=== PATIENT | female | born 1960 | race Hispanic/Latino ===

== ENCOUNTER 2020-04-12 10:44 | Outpatient (CLI) | payer BC, SELFPAY ==
[2020-04-12 11:29] LABS: Alanine Aminotransferase 39 U/L (4-35); Albumin Level 4.5 g/dL (3.5-5.1); Alkaline Phosphatase 93 U/L (38-126); Anion Gap 10 mmol/L (8-16); Aspartate Amino Transferase 39 U/L (14-36); Bilirubin,Total 0.4 mg/dL (0.2-1.3); Blood Urea Nitrogen 16 mg/dL (7-17); Calcium 9.1 mg/dL (8.4-10.2); Carbon Dioxide 28 mmol/L (22-30); Chloride 105 mmol/L (98-107); Cholesterol 162 mg/dL (0-200); Estimated Glomerular Filt Rate > 60; Glucose 112 mg/dL (65-105); HDL Direct 37 mg/dL; Potassium 3.8 mmol/L (3.4-5.0); Sodium 143 mmol/L (137-145); Triglycerides 152 mg/dL (<150)
[2020-04-12 11:40] LABS: LDL Cholesterol Direct 91 mg/dL
== END 2020-04-12 10:45 | disposition home or self-care (01) ==
LOC: ANHLAB 10:45
PROVIDERS: PCP Internal Medicine; Visit Provider Internal Medicine
DX: R00.2 Palpitations (principal); E78.5 Hyperlipidemia, unspecified; Z79.899 Other long term (current) drug therapy
CPT/HCPCS: 36415; 80053; 80061; 84443

== ENCOUNTER 2020-04-19 09:37 | Outpatient (CLI) | payer BC, SELFPAY ==
--- NOTE | 2020-04-24 12:52 | WPDHOLTEREM ---
Holter/Event Monitor Holter/Event Monitor Date of procedure: 04/19/20 Procedure Type: 48 hour holter monitor Indications: Palpitations Conclusion: 1. 48 hour holter monitor on 04/19/20. 2. Predominant rhythm is sinus rhythm. HR range 57-125 bpm; average HR 79 bpm. 3. There are 19 premature supraventricular complexes and 7 supraventricular couplets. There are 3 short runs of atrial tachycardia, fastest at 132 bpm and longest lasting 6 beats. 4. There are 1,058 premature ventricular complexes. No ventricular tachycardia. 5. No sinoatrial or atrioventricular blocks. No significant pauses greater than 2 seconds. 6. Patient reports symptoms of chest pain, palpitations which demonstrate sinus rhythm, HR range 67-92 bpm.
== END 2020-04-19 09:38 | disposition home or self-care (01) ==
LOC: ANHCARD 09:38
PROVIDERS: PCP Internal Medicine; Visit Provider Internal Medicine
DX: R00.2 Palpitations (principal)
CPT/HCPCS: 93225; 93226

== ENCOUNTER 2020-06-19 09:36 | Outpatient (CLI) | payer BC, SELFPAY ==
--- NOTE | ~2020-06-19 | XR_ITS ---
EXAMINATION: XR chest 2V EXAM DATE: 06/19/2020 10:03 INDICATION: 2 month SOB S/P Covid-19 infection. TECHNIQUE: Frontal and lateral projections of the chest obtained and reviewed. Comparison is made to prior examination from 05/05/2007. FINDINGS: The lungs are clear. There are no pleural effusions. The cardiomediastinal silhouette is within normal limits. Right infrahilar granuloma. There is no pneumothorax suspected. There are mild bony degenerative changes. IMPRESSION: No acute cardiopulmonary findings. Reviewed, dictated and finalized at location B. CLEANER
== END 2020-06-19 09:37 | disposition home or self-care (01) ==
LOC: ANHIMG 09:40
PROVIDERS: PCP Internal Medicine; Visit Provider Nurse Practitioner
DX: R06.02 Shortness of breath (principal)
CPT/HCPCS: 71046

== ENCOUNTER 2020-07-16 08:20 | Outpatient (CLI) | payer MEDICAID, SELFPAY ==
--- NOTE | ~2020-07-16 | MM_ITS ---
EXAMINATION: MM screening paola BI w mani HISTORY: Screening mammogram TECHNIQUE: Craniocaudal and mediolateral oblique 3-D tomosynthesis images were obtained and synthetic 2-D images were generated. CAD analysis was submitted and interpreted. COMPARISON: 01/06/2019, 02/26/2016 bilateral digital screening mammogram examinations BREAST PARENCHYMAL COMPOSITION: The breasts are almost entirely fatty. FINDINGS: There is no evidence of suspicious mass, calcification, or architectural distortion to sugg est malignancy in either breast. There has been no suspicious interval change. IMPRESSION: 1. No mammographic evidence of malignancy. 2. Recommend routine screening mammography in one year. BI-RADS Category 1: Negative Reviewed, dictated and finalized at location A. L EQUIPMENT MECHANIC
== END 2020-07-16 08:21 | disposition home or self-care (01) ==
LOC: ANHIMG 08:24
PROVIDERS: PCP Internal Medicine; Visit Provider Nurse Practitioner
DX: Z12.31 Encounter for screening mammogram for malignant neoplasm of breast (principal)
CPT/HCPCS: 77063; 77067

== ENCOUNTER 2020-11-19 10:47 | Outpatient (CLI) | payer OTHER, SELFPAY ==
[2020-11-19 12:08] LABS: Alanine Aminotransferase 40 U/L (4-35); Albumin Level 4.4 g/dL (3.5-5.1); Alkaline Phosphatase 83 U/L (38-126); Anion Gap 5 mmol/L (8-16); Aspartate Amino Transferase 41 U/L (14-36); Bilirubin,Total 0.3 mg/dL (0.2-1.3); Blood Urea Nitrogen 9 mg/dL (7-17); Calcium 9.3 mg/dL (8.4-10.2); Carbon Dioxide 30 mmol/L (22-30); Chloride 105 mmol/L (98-107); Cholesterol 162 mg/dL (0-200); Estimated Glomerular Filt Rate > 60; Glucose 115 mg/dL (65-105); HDL Direct 41 mg/dL; Potassium 4.1 mmol/L (3.4-5.0); Sodium 140 mmol/L (137-145); Triglycerides 157 mg/dL (<150)
[2020-11-19 12:18] LABS: LDL Cholesterol Direct 84 mg/dL
[2020-11-19 12:42] LABS: Vitamin D 25 Hydroxy 33.9 ng/mL
== END 2020-11-19 10:48 | disposition home or self-care (01) ==
LOC: ANHLAB 10:50
PROVIDERS: PCP Internal Medicine; Visit Provider Nurse Practitioner
DX: E78.5 Hyperlipidemia, unspecified (principal); F32.9 Major depressive disorder, single episode, unspecified; Z13.21 Encounter for screening for nutritional disorder
CPT/HCPCS: 36415; 80053; 80061; 82306; 84443

== ENCOUNTER 2022-01-23 18:11 | Emergency (ER) | payer OTHER, SELFPAY ==
[2022-01-23 18:19] VITALS: BP 141/67; PULSE 71; RESP 16; TEMP 36.8; O2SAT 98
[2022-01-23 18:20] VITALS: BP 141/67; PULSE 71; RESP 16; TEMP 36.8; O2SAT 98
--- NOTE | 2022-01-23 18:33 | ED.GENADULT ---
HPI - General Adult General Chief complaint: Dental/Oral Stated complaint: rt side facial pain Time Seen by Provider: 01/23/22 18:24 Source: patient Mode of arrival: ambulatory Limitations: no limitations History of Present Illness HPI narrative: Patient presents today complaining of right-sided facial pain and swelling. She had an endoscopy 3 days ago and states the day after her scope she developed this pain to her right upper lip that extends to her right cheek up to her right eye, and down her right neck. She currently rates her pain 5/10 and has been taking ibuprofen and using VapoRub on her face without much relief. Related Data Home Medications Medication Instructions Recorded Confirmed atorvastatin 10 mg tablet 10 mg PO DAILY 04/12/20 01/23/22 cetirizine 10 mg tablet 10 mg PO DAILY 04/12/20 01/23/22 milk thistle 175 mg tablet 175 mg PO DAILY 04/12/20 01/23/22 multivitamin-ferrous 1 tablet PO DAILY 04/12/20 01/23/22 fumarate-folic acid 18 mg-400 mcg tablet ([facility]) Allergies Allergy/AdvReac Type Severity Reaction Status Date / Time ciprofloxacin Allergy Severe TONGUE Verified 01/23/22 18:16 SWELLING, RASH Review of Systems Review of Systems: CONSTITUTIONAL: Denies body aches, fever, chills, or sweats. EYES: Denies visual changes, redness, or discharge. ENT: Denies rhinorrhea, congestion, sore throat, or otalgia. CARDIOVASCULAR: Denies chest pain, palpitations, or edema. RESPIRATORY: Denies cough or dyspnea. GASTROINTESTINAL: Denies abdominal pain, nausea, vomiting, or diarrhea. GENITOURINARY: Denies dysuria or hematuria. SKIN: Denies rash, itching, or wounds.+ Right-sided facial pain and swelling MUSCULOSKELETAL: Denies back pain, joint pain, or myalgia. NEUROLOGIC: Denies headache, numbness, tingling, or weakness. PSYCH: Denies depression or anxiety. [facility] Social History Social History Smoking status: Never smoker Second hand tobacco smoke exposure: Yes Alcohol intake: former Substance use: never Substance use type: does not use Comments At time of signature, I have reviewed and agree with nursing past medical, surgical, social and family history unless otherwise noted. Please see nursing chart for further information. There is no relevant family history pertinent to the presenting complaint Exam Narrative: GENERAL: Well-appearing, well-nourished, and in no acute distress. HEAD: Normocephalic, atraumatic. EYES: EOMI. No redness or drainage. Conjunctivae normal. ENT: Mucous membranes pink and moist. Throat normal. Uvula midline. Firm, indurated, erythematous right lateral upper lip that is tender to palpation. This tenderness extends posteriorly inside and outside the cheek, upward just under the right eye. Patient also has some tenderness back towards the preauricular area and down towards the tonsillar lymph node area. This area of the cheek is scantly erythematous. No induration aside from the lip. The inside mucosa of the cheek seems to appear normal. NECK: Normal AROM. Supple. No lymphadenopathy. CHEST: No respiratory distress. EXTREMITIES: Normal range of motion. No edema. SKIN: Warm, dry, no rash. Capillary refill normal. Normal skin turgor. NEURO: No focal deficits. Alert and oriented x3. Gait steady. PSYCH: Normal affect. No signs of depression or anxiety. Course Course Level of Care: Express Care Visit Vital Signs Vital signs: Vital Signs Temperature 98.2 F 01/23/22 18:19 Pulse Rate 71 01/23/22 18:19 Respiratory Rate 16 01/23/22 18:19 Blood Pressure 141/67 H 01/23/22 18:19 Pulse Oximetry 98 01/23/22 18:19 Oxygen Delivery Room Air 01/23/22 18:19 Temperature 98.2 F 01/23/22 18:20 Pulse Rate 71 01/23/22 18:20 Respiratory Rate 16 01/23/22 18:20 Blood Pressure 141/67 H 01/23/22 18:20 Pulse Oximetry 98 01/23/22 18:20 Oxygen Delivery Room Air 07
== END 2022-01-23 18:37 | disposition home or self-care (01) ==
PROVIDERS: Emergency Provider Nurse Practitioner
DX: L03.211 Cellulitis of face (principal)
CPT/HCPCS: 99213; G0463

== ENCOUNTER 2024-04-01 16:17 | Emergency (ER) | payer OTHER, SELFPAY ==
[2024-04-01 16:27] VITALS: BP 118/67; PULSE 67; RESP 16; TEMP 36.1; O2SAT 98
--- NOTE | 2024-04-01 17:11 | ED.WOUNDLAC ---
HPI - Wound/Laceration General Chief Complaint: Wound/Laceration Stated Complaint: painful bump right inner thigh Time Seen by Provider: 04/01/24 17:03 Source: patient and RN notes reviewed Mode of arrival: ambulatory Limitations: no limitations History of Present Illness HPI narrative: Patient presents today complaining of a painful red bump to the right lateral vulva area x6 days that has been worsening since onset. She has had a small amount of drainage from the area as well. She has had 1 prior abscess in the past. Denies history of MRSA. Related Data Home Medications Medication Instructions Recorded Confirmed atorvastatin 10 mg tablet 10 mg PO DAILY 04/12/20 04/01/24 cetirizine 10 mg tablet 10 mg PO DAILY 04/12/20 04/01/24 milk thistle 175 mg tablet 175 mg PO DAILY 04/12/20 01/23/22 multivitamin-ferrous 1 tablet PO DAILY 04/12/20 04/01/24 fumarate-folic acid 18 mg-400 mcg tablet ([facility]) dulaglutide 0.75 mg/0.5 mL 0.75 mg subcut DAILY 04/01/24 04/01/24 [facility] lisinopril 2.5 mg tablet 2.5 mg PO DAILY 04/01/24 04/01/24 Allergies Allergy/AdvReac Type Severity Reaction Status Date / Time ciprofloxacin Allergy Severe TONGUE Verified 04/01/24 16:32 SWELLING, RASH Review of Systems Review of Systems: CONSTITUTIONAL: Denies body aches, fever, chills, or sweats. EYES: Denies visual changes, redness, or discharge. ENT: Denies rhinorrhea, congestion, sore throat, or otalgia. CARDIOVASCULAR: Denies chest pain, palpitations, or edema. RESPIRATORY: Denies cough or dyspnea. GASTROINTESTINAL: Denies abdominal pain, nausea, vomiting, or diarrhea. GENITOURINARY: Denies dysuria or hematuria. SKIN: Denies rash, itching, or wounds. Abscess to vulva MUSCULOSKELETAL: Denies back pain, joint pain, or myalgia. NEUROLOGIC: Denies headache, numbness, tingling, or weakness. PSYCH: Denies depression or anxiety. [facility] Past Medical History Medical History (Updated 04/01/24 @ 17:32 by Demetra Main, [employer]IL[employer], ) Diabetes Hypertension Social History Social History Smoking status: Never smoker Second hand tobacco smoke exposure: Yes Alcohol intake: former Substance use: never Substance use type: does not use Exam Narrative: GENERAL: Well-appearing, well-nourished, and in no acute distress. HEAD: Normocephalic, atraumatic. EYES: EOMI. No redness or drainage. Conjunctivae normal. ENT: Mucous membranes pink and moist. NECK: Normal AROM. CHEST: No respiratory distress. EXTREMITIES: Normal range of motion. No edema. SKIN: Warm, dry, no rash. Capillary refill normal. Normal skin turgor. 1.5 cm round fluctuant lesion to the right upper lateral vulva area. NEURO: No focal deficits. Alert and oriented x3. Gait steady. PSYCH: Normal affect. No signs of depression or anxiety. Course Course Level of Care: Express Care Visit Vital Signs Vital signs: Vital Signs Temperature 97.0 F L 04/01/24 16:27 Pulse Rate 67 04/01/24 16:27 Respiratory Rate 16 04/01/24 16:27 Blood Pressure 118/67 04/01/24 16:27 Pulse Oximetry 98 04/01/24 16:27 Oxygen Delivery Room Air 04/01/24 16:27 Temperature 97.0 F L 04/01/24 16:27 Pulse Rate 67 04/01/24 16:27 Respiratory Rate 16 04/01/24 16:27 Blood Pressure 118/67 04/01/24 16:27 Pulse Oximetry 98 04/01/24 16:27 Oxygen Delivery Room Air 04/01/24 16:27 Reviewed Procedures Abscess I/D Vulva: Date of Incision: 04/01/24 Time of Incision: 17:30 Side (if applicable): right Local Anesthetic: lidocaine 1% Amount of anesthesia used (mL): 2 Technique: incised with #11 blade Amount of fluid expressed (mL): 0.5 Irrigation: Yes Packing used?: none I&D Results: Blood Abcess I&D Additional Comments: Dressed with large Band-Aid MDM - Wound/Laceration
== END 2024-04-01 17:34 | disposition home or self-care (01) ==
PROVIDERS: Emergency Provider Nurse Practitioner; PCP Registered Nurse
DX: N76.4 Abscess of vulva (principal); E11.9 Type 2 diabetes mellitus without complications; I10 Essential (primary) hypertension
CPT/HCPCS: 56405; 99213; G0463; J2003

== ENCOUNTER 2025-03-03 18:29 | Emergency (ER) | payer OTHER, SELFPAY ==
--- NOTE | 2025-03-03 18:33 | ED.FEMALEGU ---
HPI - Female Genitourinary General Chief complaint: Urogenital-Female Stated complaint: urinary irritation Time Seen by Provider: 03/03/25 18:45 Source: patient and RN notes reviewed Mode of arrival: ambulatory Limitations: no limitations History of Present Illness HPI Narrative: 64-year-old female presents with concern for 2 week history of urinary urgency, frequency, dysuria. Reports of last 2 days she has developed low back pain suprapubic discomfort. She reports she has been also feeling nauseated and having chills and sweats. She reports she has increased her water intake, surgery in cranberry juice and taking cranberry pills without relief. I MD elicited complaint: UTI Related Data Home Medications ?Medication ?Instructions ?Recorded ?Confirmed ?Last Taken ?Type atorvastatin 10 mg tablet 10 mg PO DAILY 04/12/20 04/01/24 Unknown History cetirizine 10 mg tablet 10 mg PO DAILY 04/12/20 04/01/24 Unknown History milk thistle 175 mg tablet 175 mg PO DAILY 04/12/20 01/23/22 Unknown History multivitamin-ferrous 1 tablet PO DAILY 04/12/20 04/01/24 Unknown History fumarate-folic acid 18 mg-400 mcg tablet ([facility]) dulaglutide 0.75 mg/0.5 mL 0.75 mg subcut DAILY 04/01/24 04/01/24 Unknown History subcutaneous pen injector ([facility]) lisinopril 2.5 mg tablet 2.5 mg PO DAILY 04/01/24 04/01/24 Unknown History Allergies Allergy/AdvReac Type Severity Reaction Status Date / Time ciprofloxacin Allergy Severe TONGUE Verified 03/03/25 18:31 SWELLING, RASH Review of Systems Review of Systems: CONSTITUTIONAL: Reports malaise, chills, sweats CARDIOVASCULAR: Denies chest pain, palpitations, or edema. RESPIRATORY: Denies cough or dyspnea. GASTROINTESTINAL: Denies abdominal pain, vomiting, diarrhea. Reports nausea GENITOURINARY: Reports dysuria, frequency, urgency, suprapubic pressure. Denies flank pain or hematuria. SKIN: Denies rash or itching. MUSCULOSKELETAL: Reports bilateral back pain. Denies myalgia. All systems reviewed & are unremarkable except as noted in HPI and below PMFSH Past Medical History Medical History (Updated 03/03/25 @ 18:53 by Josy Pacheco NP) Hypertension Diabetes Social History Social History Smoking status: Never smoker Second hand tobacco smoke exposure: Yes Alcohol intake: former Substance use: never Substance use type: does not use Comments At time of signature, agree with nursing past medical, surgical, social and family history. There is no relevant family history pertinent to the presenting complaint Exam Narrative: GENERAL: Well-appearing, well-nourished, and in no acute distress. HEAD: Normocephalic. EYES: PERRLA, conjunctivae clear. NECK: Supple. No lymphadenopathy CHEST: Clear to auscultation. No respiratory distress. HEART: Regular rate and rhythm. ABDOMEN: Soft, nontender upon palpation, nondistended, no palpable or pulsatile masses, no guarding. No CVA tenderness SKIN: Warm, dry, no rash. NEURO: Alert and oriented x3. PSYCH: Normal mood and affect Course Course Emergency Course: Patient is aware of diagnosis, understands and agrees to treatment plan. Anticipatory guidance given. Patient agrees to follow-up as directed and is aware of reasons to seek care at the emergency department. Portions of this record may have been created with voice recognition software Level of Care: Express Care Visit Vital Signs Vital signs: Reviewed. MDM - Female Genitourinary MDM Narrative Medical decision making narrative: Exam findings and UA show no acute concerns or changes; patient is non-toxic appearing and is in no distress. Patient is appropriate for outpatient treatment and follow-up. Differential Diagnosis Differential diagnosis: Likely urinary tract infection and cystitis Critical Care Time Critical Care Time Critical Care Time: No Discharge Plan Discharge Clinical Impression: Urinary tract infection Patient Disposition: Home Condition: Stable Instructions: Antibiotic Form, Urinary Tract Infection in Women (ED) Additional Instructions: We will send a urine culture to the lab; if the culture identifies an organism that the prescribed antibiotic will not treat, you will receive a phone call from an urgent care staff member and an appropriate antibiotic will be prescribed. -Your symptoms should begin to improve within a day of starting antibiotics. But you should finish all the antibiotic pills you get. Otherwise your infection might come back. -Also recommend: increase water intake. Tylenol/ibuprofen as needed for pain or fever -Follow-up with your primary care provider for urine recheck or seek ER visit if condition worsens with high fever, nausea, vomiting and severe back pain. Patient Language: Maori Prescriptions: New amoxicillin-pot clavulanate 875-125 mg tablet 1 tablet PO Q12H 10 Days Qty: 20 0RF phenazopyridine [Pyridium] 200 mg tablet 200 mg PO TID PRN (Reason: pain) Qty: 6 0RF No Action lisinopril 2.5 mg tablet 2.5 mg PO DAILY Trulicity 0.75 mg/0.5 mL pen injector 0.75 mg SUBCUT DAILY atorvastatin 10 mg tablet 10 mg PO DAILY cetirizine 10 mg tablet 10 mg PO DAILY [facility] 18-400 mg-mcg tablet 1 tablet PO DAILY milk thistle 175 mg tablet 175 mg PO DAILY Rx Instructions: give with meal/snack sertraline 50 mg tablet 50 mg PO DAILY Qty: 90 1RF Follow-up/Referrals: Dianne,AMY Josue [Primary Care Provider] Time of Disposition: 18:55
[2025-03-03 18:38] VITALS: BP 130/56; PULSE 72; RESP 16; TEMP 36.4; O2SAT 94
[2025-03-03 18:48] LABS: EDUAAPPEAR Clear; EDUABILI Negative (Negative); EDUABLOOD 2+ (Negative); EDUACOLOR1 Yellow; EDUAGLUCOSE Negative (Negative); EDUAKETONE Negative (Negative); EDUALEUKO Trace (Negative); EDUANITRATE Negative (Negative); EDUAPH 6.0; EDUAPROTEIN Negative (Negative); EDUASPGRAVITY 1.010; EDUAUROBILI 0.2
== END 2025-03-03 18:59 | disposition home or self-care (01) ==
PROVIDERS: Emergency Provider Nurse Practitioner; PCP Registered Nurse
DX: N39.0 Urinary tract infection, site not specified (principal); I10 Essential (primary) hypertension; E11.9 Type 2 diabetes mellitus without complications; Z79.85 Long-term (current) use of injectable non-insulin antidiabetic drugs
CPT/HCPCS: 81003; 87086; 99213; G0463